=== PATIENT | female | born 1935 | race Two or more races ===

== ENCOUNTER 2024-06-04 09:27 | Emergency (ER) | payer OTHER ==
[~2024-06-04] VITALS: Ht 154.9 cm; Wt 59.0 kg
[2024-06-04] MEDS ORDERED: COREG CR10 MG (09:36)
[2024-06-04] MEDS ORDERED: CRESTOR40 MG (09:36)
[2024-06-04] MEDS ORDERED: 0.9 % SODIUM CHLORIDE 1,000 ML IV STA (09:59)
[2024-06-04] MEDS ORDERED: LEVALBUTEROL HCL 1.25 MG/3 ML SOLUTION IH STA (09:59)
[2024-06-04] MEDS ORDERED: BUDESONIDE 0.5 MG/2 ML AMPUL.NEB IH STA (10:00)
[2024-06-04 10:46] LABS: HEMATOCRIT 41.5 % (36.0-45.00); HEMOGLOBIN 13.5 g/dL (12.0-15.00); MEAN CELL VOLUME 81.3 fL (80.00-100.00); MEAN CORPUSCULAR HEMOGLOBIN 26.5 pg (27.00-32.0); MEAN CORPUSCULAR HGB CONC 32.6 g/dl (32.0-36.0); PLATELET COUNT 175 K/uL (150-450); RED BLOOD COUNT 5.11 M/uL (4.00-6.00)
[2024-06-04 11:30] LABS: ALBUMIN 3.9 gm/dL (3.4-5.0); BILIRUBIN TOTAL 0.48 mg/dL (0.3-1.2); BILIRUBIN,CONJUGATED 0.14 mg/dL (0.0-0.2); BILIRUBIN,UNCONJUGATED 0.34 mg/dL (0.0-0.6); CALCIUM 9.3 mg/dL (8.5-10.1); CREATININE SERUM 0.72 mg/dL (0.55-1.02); GFR 76.27; POTASSIUM 4.19 mEq/L (3.5-5.1); TOTAL PROTEIN 7.6 gm/dL (6.4-8.2)
[2024-06-04 13:16] LABS: PH,URINE 7.5 (5.0-8.0); URINE APPEARANCE Clear; URINE BILIRRUBIN Negative (NEGATIVE); URINE BLOOD Negative; URINE COLOR Yellow; URINE GLUCOSE Negative (NEGATIVE); URINE KETONE Negative (NEGATIVE); URINE LEUKOCYTE Small; URINE NITRATE Positive; URINE PROTEIN Negative (NEGATIVE); URINE UROBILINOGEN 0.2 E.U./dl
[2024-06-04 13:21] LABS: URINE BACTERIA 397.7 uL (0.0-1933); URINE EPITHELIAL CELLS 2.8 uL (0.0-38.8); URINE RBC 7.3 uL (0.0-20.8); URINE WBC 51.6 uL (0.0-23.2)
[2024-06-04 15:19] LABS: ABG PH 7.399 (7.35-7.45); ABG PO2 87.1 mmHg (80-100); ABG pCO2 41.8 mmHg (35-45); BASE EXCESS 0.3 mmol/l; BICARBONATE 25.3 mmol/l (23-25); SaO2 96.6 %; Tco2 26.6 mmol/l; allen test SATISFACTORY; o2 21 %; puncture site RADIAL RIGHT
== END 2024-06-04 16:39 | disposition home or self-care (01) ==
LOC: ER 09:27
PROVIDERS: General Practice
DX: R53.81 Other malaise (principal); R05.9 Cough, unspecified
CPT/HCPCS: 36415; 71250; 82803; 94640; 96365; 96366; 99284; J7030

== ENCOUNTER 2024-06-26 10:34 | Outpatient (CLI) | payer OTHER ==
[~2024-06-26 10:34] MED LIST: COREG CR10 MG; CRESTOR40 MG
== END 2024-06-26 10:35 | disposition home or self-care (01) ==
LOC: NUCLEAR 10:34
PROVIDERS: ATTEND Physical Medicine & Rehabilitation
DX: M79.661 Pain in right lower leg (principal)